=== PATIENT | male | born 1985 | race Caucasian/White ===

== ENCOUNTER 2021-01-15 12:04 | Emergency (ER) | payer OTHER, SELFPAY ==
[2021-01-15] VITALS (11 sets, daily range): BP systolic 148–177; BP diastolic 82–94; PULSE 72–96; RESP 13–20; TEMP 36.6; O2SAT 95–99; BMI 32.5
--- NOTE | 2021-01-15 12:14 | DI.RAD.S_ITS ---
PROCEDURE: XR CHEST 1V INDICATIONS: hypertension TECHNIQUE: One view of the chest was acquired. COMPARISON: None. FINDINGS: Surgical changes and devices: None. Lungs and pleura: Lungs are clear. No pleural effusions or pneumothorax. Mediastinum: Mediastinal contours appear normal. Heart size is normal. Bones and chest wall: No suspicious bony lesions. Overlying soft tissues appear unremarkable. IMPRESSION: No acute cardiopulmonary findings Approved by: Paddy Grant M.D. on 01/15/2021 at 12:13
--- NOTE | 2021-01-15 12:16 | ED.DIZZY ---
HPI - Dizziness General Chief Complaint: Dizziness Stated Complaint: Anxious, high blood pressure and tachy. Time Seen by Provider: 01/15/21 12:14 History of Present Illness HPI Narrative: Patient is a 35-year-old male history of hypertension presenting with dizziness and hypertension. He has a surgical wrap he was in the OR when he suddenly started to not feel well. He was found to be slightly diaphoretic a little dizzy and extremely hypertensive. He states he did not eat breakfast today, which is typical for him, he was given some orange juice glucose is 91. He is not a diabetic. His he feels like he is a little dizzy no numbness tingling or weakness. He denies any chest pain or palpitations. He has minimal headache. Related Data Allergies Allergy/AdvReac Type Severity Reaction Status Date / Time No Known Drug Allergies Allergy Verified 01/15/21 12:32 Review of Systems Review of Systems Narrative: GENERAL: Denies chills, fatigue, malaise, fever, sweats, travel HEENT: Denies sinus pain, ear pain, sore throat, difficulty swallowing, neck pain RESPIRATORY: Denies dyspnea, cough, wheezing, hemoptysis, sputum. CARDIOVASCULAR: Denies chest pain, palpitations, orthopnea, edema GASTROINTESTINAL: Denies nausea, vomiting, abdominal pain, diarrhea, constipation, melena. : Denies dysuria, frequency, incontinence, hematuria, urinary retention, flank pain. MUSCULOSKELETAL: Denies weakness, joint pain, or bony pain SKIN: No rash, no erythema, no pruritus NEUROLOGIC: Headache PSYCHIATRIC: No concerning psychosocial issues. 12 point review of systems is negative except for those stated above and HPI Patient History Social History Smoking Status: Never smoker Exam Initial Vital Signs Initial Vital Signs: Vital Signs Temperature 98 F 01/15/21 12:05 Pulse Rate 86 01/15/21 12:05 Respiratory Rate 18 01/15/21 12:05 Blood Pressure 177/94 H 01/15/21 12:05 Pulse Oximetry 98 01/15/21 12:05 GENERAL: Alert 35-year-old male appears to not feel well in no acute distress. HEENT: Head atraumatic,EOMI, pupils reactive, face symmetric, moist mucous membranes CARDIOVASCULAR: Regular rate and rhythm without murmurs, rubs or gallops. RESPIRATORY: Breath sounds equal bilaterally, no wheezes rales or rhonchi. ABDOMEN: Soft, nontender. Normoactive bowel sounds all 4 quadrants. No guarding or rebound. EXTREMITIES: Normal range of motion, no clubbing or edema. Neurovascularly intact NEUROLOGICAL: Alert and oriented x4.Normal gait and speech. Cranial nerves II through XII grossly intact. Good [id number], good [id number], strength equal bilaterally, no dysarthria or aphasia, sensation in tact to soft touch bilaterally, no visual changes, no facial droop SKIN: Warm, dry, no laceration, no petechiae, no rashes or lesions. Scores NIH Stroke Scale Level of Conciousness: Alert, keenly responsive Ask month/age: Answers both questions correctly. Open/close eyes, close hand: Performs both tasks correctly Best gaze horizontal: Normal Visual martinez: No visual loss Facial palsy: Normal symetrical movement Left arm drift: No drift for full 10 sec Right arm drift: No drift for full 10 sec Left leg drift: No drift for full 5 sec Right leg drift: No drift for full 5 sec Limb ataxia: Absent Sensory on face/arms/legs: Normal, no sensory loss Best language: No aphasia, normal Dysarthria: Normal Extinction or inattention: No abnormality Total NIH Stroke scale score: 0 PERC Score Age greater than or equal to 50 years: No Heart rate greater than or equal to 100 bpm: No Room Air O2 Sat less than 95%: No Unilateral leg swelling: No Recent trauma or surgery: No Hemoptysis: No Prior PE or DVT: No Hormone Use: No Total PERC Score: 0 Course Orders Ordered: ED Orders 01/15/21 12:14 XR chest 1V Stat EKG-12 Lead Stat 01/15/21 13:34 Complete Blood Count AUTO DIFF Stat Comprehensive Metabolic Panel Stat D Dimer Stat Lipase Stat Troponin & CK Cardiac Panel Stat Vital Signs Vital signs: Vital Signs - 8 hr 01/15/21 12:05 01/15/21 12:16 01/15/21 12:17 Temperature 98 F Pulse Rate 86 85 Respiratory Rate 18 13 Blood Pressure 177/94 H 177/94 H Pulse Oximetry 98 99 01/15/21 12:30 01/15/21 12:31 01/15/21 13:00 Temperature Pulse Rate 86 87 80 Respiratory Rate 14 15 19 Blood Pressure 172/93 H Pulse Oximetry 97 98 97 01/15/21 13:01 01/15/21 13:33 01/15/21 13:34 Temperature Pulse Rate 78 76 Respiratory Rate 20 17 Blood Pressure 157/82 H 159/92 H Pulse Oximetry 97 95 99 01/15/21 14:00 01/15/21 14:30 Temperature Pulse Rate 72 96 H Respiratory Rate 19 17 Blood Pressure 148/83 H 170/85 H Pulse Oximetry 98 97 MDM - Dizziness Lab Data Result diagrams: 01/15/21 13:34 01/15/21 13:34 Labs: Lab Results 01/15/21 01/15/21 01/15/21 Range/Units 13:34 13:34 13:34 WBC 9.4 (4.5-11.0) X10^3/uL RBC 5.38 (4.5-5.9) X10^6/uL Hgb 16.7 (13.5-17.5) g/dL Hct 47.2 (41-53) % MCV 87.6 (80-100) fL MCH 31.1 (26-34) PG MCHC 35.5 (30-36) % RDW 13.3 (11.6-14.8) % Plt Count 262 (150-400) X10^3/uL Neut % (Auto) 81.8 H (50-75) % Lymph % (Auto) 10.8 L (25-40) % [place] % (Auto) 5.9 (3-14) % Eos % (Auto) 0.9 L (2-4) % Baso % (Auto) 0.6 (0-2) % Neut # (Auto) 7600 H (1486-7171) /uL Lymph # (Auto) 1000 L (4036-1629) /uL [place] # (Auto) 600 (0-900) /uL Eos # (Auto) 100 (0-450) /uL Baso # (Auto) 100 (0-100) /uL D-Dimer < 200 (<230) ng/mL Sodium 142 (137-145) mmol/L Potassium 4.4 (3.4-5.1) mmol/L Chloride 103 (98-107) mmol/L Carbon Dioxide 25 (22-32) mmol/L BUN 12 (9-20) mg/dL Creatinine 0.84 (0.66-1.25) mg/dL Estimated GFR > 60.0 (>60) mL/min BUN/Creatinine Ratio 14.3 (6-22) Glucose 97 (70-100) mg/dL Calcium 10.1 (8.4-10.2) mg/dL Total Bilirubin 0.7 (0.2-1.3) mg/dL AST 52 (17-59) IU/L ALT 95 H (<50) IU/L Alkaline Phosphatase 45 (38-126) U/L Total Creatine Kinase 71 (55-170) U/L CK-MB (CK-2) TNP CK-MB (CK-2) Rel Index TNP Troponin I < 0.012 (0.01-0.034) ng/mL Total Protein 7.9 (6.3-8.2) g/dL Albumin 5.0 (3.5-5.0) g/dL Globulin 2.9 (1.7-4.1) g/dL Albumin/Globulin Ratio 1.7 (1.0-2.8) Lipase 74 (23-300) U/L Point of Care Testing Glucose POC 91 Imaging Data Chest x-ray: Radiologist's Impression: PROCEDURE:? XR CHEST 1V ? INDICATIONS:? hypertension ? TECHNIQUE:? One view of the chest was acquired.? ? COMPARISON:? None. ? FINDINGS:? ? Surgical changes and devices:? None.? ? Lungs and pleura:? Lungs are clear.? No pleural effusions or pneumothorax.? ? Mediastinum:? Mediastinal contours appear normal.? Heart size is normal.? ? Bones and chest wall:? No suspicious bony lesions.? Overlying soft tissues appear unremarkable.? ? IMPRESSION:? No acute cardiopulmonary findings ? ? ? Approved by: Paddy Grant M.D. on 01/15/2021 at 12:13? ECG Data Interpretation: Sinus rhythm rate 109 LA interval 170 QRS 1 [address] changes MDM Narrative Medical decision making narrative: Patient is a healthy 35-year-old male whose states that he actually is having quite bad anxiety attacks and he is under a lot of stress. She thinks that this may have been anxiety attack. She overall is feeling significantly better blood pressure has improved but remains elevated in the emergency department. I recommend he check his blood pressure at home and record it. They have an appointment with primary care doctor next week. He has no headache no neck pain no focal deficits at this time no indication for CT head. Discussed test results with patient and both agree and will follow-up as needed. Discharge Plan Departure Patient Disposition: Home Clinical Impression: Hypertension Instructions: Essential Hypertension Activity Restrictions/Additional Instructions: *You have been diagnosed with hypertension *What to do: At this time blood work EKG are all reassuring her blood pressure has come down with out any medication. Please eat regularly drink fluids and monitor blood pressure at home. You may need to have adjustment in your blood pressure medication. *Continue to take medications as directed *Follow up with your primary care provider in 2-3 days *Return to ER if you should have a increasing headache, persistent blood pressure is greater than 185, chest pain, shortness of breath or palpitations or any new, worsening or concerning symptoms Referrals: Donald Dumont MD [Primary Care Provider] -
--- NOTE | 2021-01-15 13:41 | PC.NURSE ---
no dizziness for standing or ambulating, steady gate.
[2021-01-15 13:43] LABS: Add Manual Diff / Slide Review NO; Basophils Absolute Auto 100 /uL (0-100); Basophils Percent Auto 0.6 % (0-2); Eosinophils Absolute Auto 100 /uL (0-450); Eosinophils Percent Auto 0.9 % (2-4); Hematocrit 47.2 % (41-53); Hemoglobin 16.7 g/dL (13.5-17.5); Lymphocytes Absolute Auto 1000 /uL (1100-4500); Lymphocytes Percent Auto 10.8 % (25-40); Mean Corpuscular HGB Conc 35.5 % (30-36); Mean Corpuscular Hemoglobin 31.1 PG (26-34); Mean Corpuscular Volume 87.6 fL (80-100); Monocytes Absolute Auto 600 /uL (0-900); Monocytes Percent Auto 5.9 % (3-14); Neutrophils Absolute Auto 7600 /uL (1500-7000); Neutrophils Percent Auto 81.8 % (50-75); Platelet Count 262 X10^3/uL (150-400); Red Blood Cell Count 5.38 X10^6/uL (4.5-5.9); Red Cell Distribution Width 13.3 % (11.6-14.8); White Blood Cell Count 9.4 X10^3/uL (4.5-11.0)
[2021-01-15 14:01] LABS: Alanine Aminotransferase 95 IU/L (<50); Albumin Globulin Ratio 1.7 (1.0-2.8); Alkaline Phosphatase 45 U/L (38-126); Aspartate Aminotransferase 52 IU/L (17-59); BUN Creatinine Ratio 14.3 (6-22); Bilirubin Total 0.7 mg/dL (0.2-1.3); Blood Urea Nitrogen 12 mg/dL (9-20); Calcium 10.1 mg/dL (8.4-10.2); Carbon Dioxide 25 mmol/L (22-32); Chloride 103 mmol/L (98-107); Creatine Kinase 71 U/L (55-170); Estimated Glomerular Filt Rate > 60.0 mL/min (>60); Globulin 2.9 g/dL (1.7-4.1); Glucose 97 mg/dL (70-100); HEMOLYSIS < 15 (0-50); Lipase 74 U/L (23-300); Potassium 4.4 mmol/L (3.4-5.1); Sodium 142 mmol/L (137-145); Total Protein 7.9 g/dL (6.3-8.2)
[2021-01-15 14:14] LABS: Troponin I < 0.012 ng/mL (0.01-0.034)
[2021-01-15 14:22] LABS: D Dimer < 200 ng/mL (<230)
== END 2021-01-15 14:50 | disposition home or self-care (01) ==
PROVIDERS: Emergency Provider Emergency Medicine; PCP Specialist
DX: I10 Essential (primary) hypertension (principal); F43.9 Reaction to severe stress, unspecified; Y99.0 Civilian activity done for income or pay
CPT/HCPCS: 71045; 80053; 82550; 82962; 83690; 84484; 85025; 85379; 93005; 93010; 99283; 99284